=== PATIENT | female | born 1990 | race Caucasian/White ===

== ENCOUNTER 2018-04-03 16:16 | Emergency (ER) | payer OTHER, MEDICAID, SELFPAY ==
--- NOTE | 2018-04-03 16:19 | ED.ABDPAIN ---
HPI - Abdominal Pain <ESTEFANY Ortiz - Last Filed: 04/03/18 22:11> General Chief Complaint: Abdominal Pain Stated Complaint: ABD PAIN BLOOD STOOL THOWING UP Time Seen by Provider: 04/03/18 16:19 History of Present Illness HPI narrative: 27-year-old female here for complaint of nausea vomiting and generalized abdominal pain with diarrhea over the past 3 days. She states that she has also had blood in her stool over the past couple of days as well. No fevers. Possible chills. She denies any urinary symptoms. She denies any recent travel. No recent antibiotic use. She denies any outdoor activities. She denies eating any food that she thought was pulled. No known contacts with same symptoms. Positive p.o. intake although she had nausea vomiting shortly after eating. Her pain is mostly to her right lower quadrant area MD complaint: abdominal pain and other Related Data Previous Rx's Medication Instructions Recorded ondansetron 4 mg PO TID PRN #10 tab 04/03/18 Allergies Allergy/AdvReac Type Severity Reaction Status Date / Time Penicillins Allergy Severe ALMOST Verified 04/03/18 17:02 venom-honey bee Allergy Severe ANAPHYLAXIS Verified 04/03/18 17:02 [bee venom (honey bee)] Review of Systems <ESTEFANY Ortiz - Last Filed: 04/03/18 22:11> Constitutional Reports chills, Denies fever(s), Denies lethargy and Denies weakness Eyes Denies change in vision, Denies eye discharge, Denies irritation and Denies loss of vision ENT Ears, Nose, Mouth, and Throat: Denies change in voice, Denies neck pain and Denies sore throat Cardiovascular Denies chest pain, Denies irregular heart rhythm, Denies lightheadedness, Denies palpitations, Denies dyspnea, Denies dyspnea on exertion and Denies orthopnea Respiratory Denies cough, Denies dyspnea, Denies dyspnea on exertion and Denies wheezing Gastrointestinal Gastrointestinal: Reports abdominal pain, Reports hematochezia, Reports diarrhea, Reports nausea and Reports vomiting Genitourinary Denies hematuria, Denies flank pain, Denies urinary incontinence and Denies urinary urgency Musculoskeletal Denies neck pain Integumentary/Breasts Denies pruritus, Denies erythema, Denies rash and Denies wounds Neurologic Denies confusion, Denies loss of vision and Denies weakness Psychiatric Denies anxiety, Denies confusion, Denies depression, Denies homicidal ideation and Denies suicidal ideation Endocrine Denies palpitations Hematologic/Lymphatic Denies easy bruising Allergic/Immunologic Denies wheezing Exam <ESTEFANY Ortiz - Last Filed: 04/03/18 22:11> Initial Vital Signs Initial Vital Signs: Vital Signs Temperature 98.0 F 04/03/18 16:39 Pulse Rate 64 04/03/18 16:39 Respiratory Rate 16 04/03/18 16:39 Blood Pressure 124/85 H 04/03/18 16:39 Pulse Oximetry 100 04/03/18 16:39 Const General: cooperative and well developed Nutritional Appearance: well nourished Orientation: alert, awake, oriented x3 and not confused HENMT Nose: external nose normal and nasal discharge Mouth: oral mucosae normal and moist mucous membranes Eyes Conjunctivae: conjunctivae normal Sclera: sclerae normal Pupils: PERRL EOM: EOM intact bilaterally Resp Effort & Inspection: normal respiratory effort, able to speak in complete sentences, no respiratory distress and no use of accessory muscles Auscultation: clear to auscultation bilaterally, no rales, no rhonchi and no wheezes Cardio Rate: regular rate Rhythm: regular rhythm Heart Sounds: no click, no gallops, no murmurs and no rubs Pulses: normal peripheral pulses GI Inspection: non-distended Palpation: soft, no hepatosplenomegaly, No guarding, No pulsatile mass and tender (Tenderness to right lower quadrant) Auscultation: normal bowel sounds Rectal Exam: visual inspection normal, normal sphincter tone and heme positive stool Skin General: no rashes or lesions noted, No jaundice and No petechiae Neuro General: alert, oriented x3, gait normal and no focal motor deficits Speech: speech normal <Cassy Pulido DO - Last Filed: 04/04/18 08:52> Initial Vital Signs Initial Vital Signs: Vital Signs Temperature 98.0 F 04/03/18 16:39 Pulse Rate 64 04/03/18 16:39 Respiratory Rate 16 04/03/18 16:39 Blood Pressure 124/85 H 04/03/18 16:39 Pulse Oximetry 100 04/03/18 16:39 Course <ESTEFANY Ortiz - Last Filed: 04/03/18 22:11> Orders Ordered: Discontinued Medications Diphenhydramine HCl (Benadryl) 25 mg IV NOW ONE Stop: 04/03/18 17:25 Last Admin: 04/03/18 17:29 Dose: 25 mg Sodium Chloride (Normal Saline 0.9%) 1,000 mls @ 150 mls/hr IV CONT FIDELINA Last Infusion: 04/03/18 21:17 Dose: 0 mls/hr Admin: 04/03/18 17:08 Dose: 150 mls/hr Metoclopramide HCl (Reglan) 10 mg IV NOW ONE Stop: 04/03/18 17:25 Last Admin: 04/03/18 17:29 Dose: 10 mg Ondansetron HCl (Zofran) 4 mg IV NOW ONE Stop: 04/03/18 17:06 Last Admin: 04/03/18 17:08 Dose: 4 mg Ondansetron HCl (Zofran Odt Prepack) 1 bottle MISC SEEINSTR ONE Stop: 04/03/18 21:00 Last Admin: 04/03/18 21:11 Dose: 1 bottle Vital Signs - 8 hr 04/03/18 16:39 04/03/18 18:01 04/03/18 19:02 Temperature 98.0 F Pulse Rate 64 47 L 52 L Respiratory Rate 16 18 17 Blood Pressure 124/85 H Blood Pressure [Right Arm] 151/82 H 146/84 H Pulse Oximetry 100 47 L 100 04/03/18 19:30 04/03/18 20:30 04/03/18 21:19 Temperature 98.7 F Pulse Rate 47 L 50 L 58 L Respiratory Rate 17 17 16 Blood Pressure 130/79 H Blood Pressure [Right Arm] 134/79 H 136/80 H Pulse Oximetry 98 <Cassy Pulido DO - Last Filed: 04/04/18 08:52> Orders Ordered: Discontinued Medications Diphenhydramine HCl (Benadryl) 25 mg IV NOW ONE Stop: 04/03/18 17:25 Last Admin: 04/03/18 17:29 Dose: 25 mg Sodium Chloride (Normal Saline 0.9%) 1,000 mls @ 150 mls/hr IV CONT FIDELINA Last Infusion: 04/03/18 21:17 Dose: 0 mls/hr Admin: 04/03/18 17:08 Dose: 150 mls/hr Metoclopramide HCl (Reglan) 10 mg IV NOW ONE Stop: 04/03/18 17:25 Last Admin: 04/03/18 17:29 Dose: 10 mg Ondansetron HCl (Zofran) 4 mg IV NOW ONE Stop: 04/03/18 17:06 Last Admin: 04/03/18 17:08 Dose: 4 mg Ondansetron HCl (Zofran Odt Prepack) 1 bottle MISC SEEINSTR ONE Stop: 04/03/18 21:00 Last Admin: 04/03/18 21:11 Dose: 1 bottle Vital Signs - 8 hr 04/03/18 16:39 04/03/18 18:01 04/03/18 19:02 Temperature 98.0 F Pulse Rate 64 47 L 52 L Respiratory Rate 16 18 17 Blood Pressure 124/85 H Blood Pressure [Right Arm] 151/82 H 146/84 H Pulse Oximetry 100 47 L 100 04/03/18 19:30 04/03/18 20:30 04/03/18 21:19 Temperature 98.7 F Pulse Rate 47 L 50 L 58 L Respiratory Rate 17 17 16 Blood Pressure 130/79 H Blood Pressure [Right Arm] 134/79 H 136/80 H Pulse Oximetry 98 MDM - Abdominal Pain <ESTEFANY Ortiz - Last Filed: 04/03/18 22:11> Lab Data Result diagrams: 04/03/18 16:45 04/03/18 16:45 Lab Results 04/03/18 04/03/18 04/03/18 Range/Units 16:45 16:45 16:45 WBC 10.6 (4.5-11.0) X10^3/uL RBC 5.62 H (4.0-5.2) X10^6/uL Hgb 16.3 H (12.0-16.0) g/dL Hct 48.7 H (36-46) % MCV 86.7 (80-100) fL MCH 29.0 (26-34) PG MCHC 33.4 (30-36) % RDW 14.0 (11.6-14.8) % Plt Count 314 (150-400) X10^3/uL Neut % (Auto) 68.7 (50-75) % Lymph % (Auto) 24.4 L (25-40) % [place] % (Auto) 4.7 (3-14) % Eos % (Auto) 2.0 (2-4) % Baso % (Auto) 0.2 (0-2) % Neut # (Auto) 7300 H (9413-2416) /uL PT 11.1 (10.1-12.7) SECONDS INR 1.0 (0.9-1.3) APTT 30 (26.4-36.2) SECONDS Sodium 144 (137-145) mmol/L Potassium 3.6 (3.4-5.1) mmol/L Chloride 102 (98-107) mmol/L Carbon Dioxide 30 (22-32) mmol/L BUN 7 (7-17) mg/dL Creatinine 0.70 (0.52-1.04) mg/dL Estimated GFR > 60.0 (>60) mL/min BUN/Creatinine Ratio 10.0 (6-22) Glucose 104 H (70-100) mg/dL Calcium 9.6 (8.4-10.2) mg/dL Total Bilirubin 0.7 (0.2-1.3) mg/dL AST 18 (14-36) IU/L ALT 22 (9-52) IU/L Alkaline Phosphatase 50 (38-126) U/L Total Protein 7.5 (6.3-8.2) g/dL Albumin 4.3 (3.5-5.0) g/dL Globulin 3.2 (1.7-4.1) g/dL Albumin/Globulin Ratio 1.3 (1.0-2.8) Lipase 36 (23-300) U/L Urine RBC (0-5/HPF) Urine WBC (0-5/HPF) Ur Squamous Epith Cells Amorphous Sediment Urine Bacteria (None) Ur Culture Indicated? Micro UA Comment Stool Aeromonas Cult (Not Detect) Stl C. cayetanensis PCR (Not Detect) Stool Rotavirus (PCR) (Not Detect) Stool Adenovirus (PCR) (Not Detect) Stool Astrovirus (PCR) (Not Detect) Stool Cryptosporidium PCR (Not Detect) Stl E.coli Shiga Tox PCR (Not Detect) St Sh/Enteroin Ecoli PCR (Not Detect) Stool E coli O157 PCR Stl Enterotoxigenic E PCR (Not Detect) Stool EPEC (PCR) (Not Detect) Stl E. histolytica PCR (Not Detect) Stool Giardia Lamblia PCR (Not Detect) Stool Sapovirus (PCR) Stl P. shigelloides PCR (Not Detect) St Y.enterocolitica PCR (Not Detect) Stool Vibrio (PCR) (Not Detect) Stl Vibrio cholerae PCR (Not Detect) Stl Enteroaggr Ecoli PCR (Not Detect) Stl Norovirus GI/GII PCR (Not Detect) Campylobacter (PCR) (Not Detect) C. difficile Tox (PCR) (Not Detect) Salmonella (PCR) (Not Detect) 04/03/18 04/03/18 Range/Units 17:42 18:50 WBC (4.5-11.0) X10^3/uL RBC (4.0-5.2) X10^6/uL Hgb (12.0-16.0) g/dL Hct (36-46) % MCV (80-100) fL MCH (26-34) PG MCHC (30-36) % RDW (11.6-14.8) % Plt Count (150-400) X10^3/uL Neut % (Auto) (50-75) % Lymph % (Auto) (25-40) % [place] % (Auto) (3-14) % Eos % (Auto) (2-4) % Baso % (Auto) (0-2) % Neut # (Auto) (1695-2979) /uL PT (10.1-12.7) SECONDS INR (0.9-1.3) APTT (26.4-36.2) SECONDS Sodium (137-145) mmol/L Potassium (3.4-5.1) mmol/L Chloride (98-107) mmol/L Carbon Dioxide (22-32) mmol/L BUN (7-17) mg/dL Creatinine (0.52-1.04) mg/dL Estimated GFR (>60) mL/min BUN/Creatinine Ratio (6-22) Glucose (70-100) mg/dL Calcium (8.4-10.2) mg/dL Total Bilirubin (0.2-1.3) mg/dL AST (14-36) IU/L ALT (9-52) IU/L Alkaline Phosphatase (38-126) U/L Total Protein (6.3-8.2) g/dL Albumin (3.5-5.0) g/dL Globulin (1.7-4.1) g/dL Albumin/Globulin Ratio (1.0-2.8) Lipase (23-300) U/L Urine RBC 5-10/hpf H (0-5/HPF) Urine WBC 1-5/hpf (0-5/HPF) Ur Squamous Epith Cells 0-1 /hpf Amorphous Sediment 3+ Urine Bacteria None seen (None) Ur Culture Indicated? Not Reportable Micro UA Comment Not Reportable Stool Aeromonas Cult Awaiting culture res (Not Detect) Stl C. cayetanensis PCR Not detected (Not Detect) Stool Rotavirus (PCR) Not detected (Not Detect) Stool Adenovirus (PCR) Not detected (Not Detect) Stool Astrovirus (PCR) Not detected (Not Detect) Stool Cryptosporidium PCR Not detected (Not Detect) Stl E.coli Shiga Tox PCR Detected H (Not Detect) St Sh/Enteroin Ecoli PCR Not detected (Not Detect) Stool E coli O157 PCR Not Reportable Stl Enterotoxigenic E PCR Not detected (Not Detect) Stool EPEC (PCR) Not detected (Not Detect) Stl E. histolytica PCR Not detected (Not Detect) Stool Giardia Lamblia PCR Not detected (Not Detect) Stool Sapovirus (PCR) Not detected Stl P. shigelloides PCR Not detected (Not Detect) St Y.enterocolitica PCR Not detected (Not Detect) Stool Vibrio (PCR) Not detected (Not Detect) Stl Vibrio cholerae PCR Not detected (Not Detect) Stl Enteroaggr Ecoli PCR Not detected (Not Detect) Stl Norovirus GI/GII PCR Not detected (Not Detect) Campylobacter (PCR) Not detected (Not Detect) C. difficile Tox (PCR) Not detected (Not Detect) Salmonella (PCR) Not detected (Not Detect) Point of care testing: Point of Care Testing Test Results Negative Urine Dip Bedside Urine Glucose Negative Bedside Urine Bilirubin - Negative Bedside Urine Ketone - Negative Urine Specific [place] 1.015 Bedside Urine Occult Blood ++ Bedside Urine pH 8.5 Bedside Urine Protein - Negative Bedside Urine Urobilinogen - Negative Bedside Urine Nitrite - Negative Bedside Urine Leukocytes - Negative Esterase Imaging Data CT scan - abdomen: Radiologist's impression: PROCEDURE: CT ABDOMEN PELVIS W CON INDICATIONS: Right upper and lower quadrant pain last couple days. History of appendectomy. TECHNIQUE: After the administration of oral and intravenous contrast, 5 mm thick sections acquired from the diaphragms to the symphysis. 5 mm thick coronal and sagittal reformats were performed. For radiation dose reduction, the following was used: automated exposure control, adjustment of mA and/or kV according to patient size. COMPARISON: None. FINDINGS: Image quality: Excellent. ABDOMEN: Lung bases: Lung bases are clear. Heart size is normal. Solid organs: There are 4 small hyperdense foci within the right and left hepatic lobes likely representing flash filling hemangiomas. The gallbladder appears within normal limits without calcified gallstones. Biliary system is non-dilated. Pancreas enhances normally. Spleen is normal in size and enhancement. No adrenal nodules. Kidneys are normal in size and enhancement, without hydronephrosis. Peritoneum and bowel: Stomach small bowel loops are normal in caliber and wall thickness. There is marked segmental wall thickening of the ascending colon as well as mild thickening involving the remainder of the colon. There is associated pericolonic fat stranding with a small amount of free fluid in the right paracolic gutter and the pelvis. No free air. Nodes and vessels: No retroperitoneal or mesenteric adenopathy. Aorta and inferior vena cava are normal in caliber. Miscellaneous: No ventral hernias. PELVIS: Genitourinary: There is mild concentric bladder wall thickening. Miscellaneous: No inguinal hernias or adenopathy. Bones: No suspicious bony lesions. No vertebral body compression fractures. IMPRESSION: 1. Diffuse infectious or inflammatory colitis including marked wall thickening of the ascending colon. 2. 4 hyperdense foci in the liver are nonspecific but given patient's age likely represent flash filling hemangiomas. Dictated by: Raheel Murillo M.D. on 04/03/2018 at 18:11 Approved by: Raheel Murillo M.D. on 04/03/2018 at 18:[address] [facility] Narrative Medical decision making narrative: CBC and Chem panel were obtained were unremarkable. Urinalysis was negative for and urinary tract infection. CT of the abdomen and shows diffuse inflammation into the colon with thickening of the wall. PCR stool studies was obtained and shows E coli shiga toxins. She is prescribed Zofran to help with the nausea. Plenty of fluids. Slowly advance diet as tolerated. follow up with primary care provider in the next few days. [id number] Tylenol as needed for any discomfort. For any worsening symptoms return to the emergency room. <Cassy Pulido, DO - Last Filed: 04/04/18 08:52> Lab Data Lab Results 04/03/18 04/03/18 04/03/18 Range/Units 16:45 16:45 16:45 WBC 10.6 (4.5-11.0) X10^3/uL RBC 5.62 H (4.0-5.2) X10^6/uL Hgb 16.3 H (12.0-16.0) g/dL Hct 48.7 H (36-46) % MCV 86.7 (80-100) fL MCH 29.0 (26-34) PG MCHC 33.4 (30-36) % RDW 14.0 (11.6-14.8) % Plt Count 314 (150-400) X10^3/uL Neut % (Auto) 68.7 (50-75) % Lymph % (Auto) 24.4 L (25-40) % [place] % (Auto) 4.7 (3-14) % Eos % (Auto) 2.0 (2-4) % Baso % (Auto) 0.2 (0-2) % Neut # (Auto) 7300 H (7096-3920) /uL PT 11.1 (10.1-12.7) SECONDS INR 1.0 (0.9-1.3) APTT 30 (26.4-36.2) SECONDS Sodium 144 (137-145) mmol/L Potassium 3.6 (3.4-5.1) mmol/L Chloride 102 (98-107) mmol/L Carbon Dioxide 30 (22-32) mmol/L BUN 7 (7-17) mg/dL Creatinine 0.70 (0.52-1.04) mg/dL Estimated GFR > 60.0 (>60) mL/min BUN/Creatinine Ratio 10.0 (6-22) Glucose 104 H (70-100) mg/dL Calcium 9.6 (8.4-10.2) mg/dL Total Bilirubin 0.7 (0.2-1.3) mg/dL AST 18 (14-36) IU/L ALT 22 (9-52) IU/L Alkaline Phosphatase 50 (38-126) U/L Total Protein 7.5 (6.3-8.2) g/dL Albumin 4.3 (3.5-5.0) g/dL Globulin 3.2 (1.7-4.1) g/dL Albumin/Globulin Ratio 1.3 (1.0-2.8) Lipase 36 (23-300) U/L Urine RBC (0-5/HPF) Urine WBC (0-5/HPF) Ur Squamous Epith Cells Amorphous Sediment Urine Bacteria (None) Ur Culture Indicated? Micro UA Comment Stool Aeromonas Cult (Not Detect) Stl C. cayetanensis PCR (Not Detect) Stool Rotavirus (PCR) (Not Detect) Stool Adenovirus (PCR) (Not Detect) Stool Astrovirus (PCR) (Not Detect) Stool Cryptosporidium PCR (Not Detect) Stl E.coli Shiga Tox PCR (Not Detect) St Sh/Enteroin Ecoli PCR (Not Detect) Stool E coli O157 PCR Stl Enterotoxigenic E PCR (Not Detect) Stool EPEC (PCR) (Not Detect) Stl E. histolytica PCR (Not Detect) Stool Giardia Lamblia PCR (Not Detect) Stool Sapovirus (PCR) Stl P. shigelloides PCR (Not Detect) St Y.enterocolitica PCR (Not Detect) Stool Vibrio (PCR) (Not Detect) Stl Vibrio cholerae PCR (Not Detect) Stl Enteroaggr Ecoli PCR (Not Detect) Stl Norovirus GI/GII PCR (Not Detect) Campylobacter (PCR) (Not Detect) C. difficile Tox (PCR) (Not Detect) Salmonella (PCR) (Not Detect) 04/03/18 04/03/18 Range/Units 17:42 18:50 WBC (4.5-11.0) X10^3/uL RBC (4.0-5.2) X10^6/uL Hgb (12.0-16.0) g/dL Hct (36-46) % MCV (80-100) fL MCH (26-34) PG MCHC (30-36) % RDW (11.6-14.8) % Plt Count (150-400) X10^3/uL Neut % (Auto) (50-75) % Lymph % (Auto) (25-40) % [place] % (Auto) (3-14) % Eos % (Auto) (2-4) % Baso % (Auto) (0-2) % Neut # (Auto) (2297-2673) /uL PT (10.1-12.7) SECONDS INR (0.9-1.3) APTT (26.4-36.2) SECONDS Sodium (137-145) mmol/L Potassium (3.4-5.1) mmol/L Chloride (98-107) mmol/L Carbon Dioxide (22-32) mmol/L BUN (7-17) mg/dL Creatinine (0.52-1.04) mg/dL Estimated GFR (>60) mL/min BUN/Creatinine Ratio (6-22) Glucose (70-100) mg/dL Calcium (8.4-10.2) mg/dL Total Bilirubin (0.2-1.3) mg/dL AST (14-36) IU/L ALT (9-52) IU/L Alkaline Phosphatase (38-126) U/L Total Protein (6.3-8.2) g/dL Albumin (3.5-5.0) g/dL Globulin (1.7-4.1) g/dL Albumin/Globulin Ratio (1.0-2.8) Lipase (23-300) U/L Urine RBC 5-10/hpf H (0-5/HPF) Urine WBC 1-5/hpf (0-5/HPF) Ur Squamous Epith Cells 0-1 /hpf Amorphous Sediment 3+ Urine Bacteria None seen (None) Ur Culture Indicated? Not Reportable Micro UA Comment Not Reportable Stool Aeromonas Cult Awaiting culture res (Not Detect) Stl C. cayetanensis PCR Not detected (Not Detect) Stool Rotavirus (PCR) Not detected (Not Detect) Stool Adenovirus (PCR) Not detected (Not Detect) Stool Astrovirus (PCR) Not detected (Not Detect) Stool Cryptosporidium PCR Not detected (Not Detect) Stl E.coli Shiga Tox PCR Detected H (Not Detect) St Sh/Enteroin Ecoli PCR Not detected (Not Detect) Stool E coli O157 PCR Not Reportable Stl Enterotoxigenic E PCR Not detected (Not Detect) Stool EPEC (PCR) Not detected (Not Detect) Stl E. histolytica PCR Not detected (Not Detect) Stool Giardia Lamblia PCR Not detected (Not Detect) Stool Sapovirus (PCR) Not detected Stl P. shigelloides PCR Not detected (Not Detect) St Y.enterocolitica PCR Not detected (Not Detect) Stool Vibrio (PCR) Not detected (Not Detect) Stl Vibrio cholerae PCR Not detected (Not Detect) Stl Enteroaggr Ecoli PCR Not detected (Not Detect) Stl Norovirus GI/GII PCR Not detected (Not Detect) Campylobacter (PCR) Not detected (Not Detect) C. difficile Tox (PCR) Not detected (Not Detect) Salmonella (PCR) Not detected (Not Detect) Point of care testing: Point of Care Testing Test Results Negative Urine Dip Bedside Urine Glucose Negative Bedside Urine Bilirubin - Negative Bedside Urine Ketone - Negative Urine Specific [place] 1.015 Bedside Urine Occult Blood ++ Bedside Urine pH 8.5 Bedside Urine Protein - Negative Bedside Urine Urobilinogen - Negative Bedside Urine Nitrite - Negative Bedside Urine Leukocytes - Negative Esterase Discharge Plan Departure Patient Disposition: Home, Self-Care Clinical Impression: E. coli gastroenteritis Discharge Date/Time: 04/03/18 21:19 Interventions: ED Discharge Assessment Last Done: 04/03/18 21:19 Instructions: DI for Escherichia Coli Infection Activity Restrictions/Additional Instructions: Laboratory results today were unremarkable. CT of the abdomen shows inflammation to the colon area. Stool study show positive for E coli toxins. Signs and symptoms presents as E coli gastroenteritis. Use [id number] Tylenol as needed for any discomfort. Zofran as prescribed for nausea. Slowly advance diet as tolerated. Plenty of fluids. Follow up with primary care provider in the next few days for re-evaluation. For any worsening symptoms return to the emergency room. Prescriptions: New ondansetron 4 mg tablet,disintegrating 4 mg PO TID PRN (Reason: nausea and vomiting) Qty: 10 RF: 0 Referrals: [facility] [Provider Group] Stand Alone Forms: Work/School Restrictions <Cassy Pulido DO - Last Filed: 04/04/18 08:52> Cosign ED Attending Mitchell Attestation: I was immediately available in the department for consultation. Documentation has been reviewed. I agree with assessment and plan.
[2018-04-03 16:39] VITALS: BP 124/85; PULSE 64; RESP 16; TEMP 36.7; O2SAT 100; BMI 23.3
--- NOTE | 2018-04-03 17:01 | DI.CT.S_ITS ---
PROCEDURE: CT ABDOMEN PELVIS W CON INDICATIONS: Right upper and lower quadrant pain last couple days. History of appendectomy. TECHNIQUE: After the administration of oral and intravenous contrast, 5 mm thick sections acquired from the diaphragms to the symphysis. 5 mm thick coronal and sagittal reformats were performed. For radiation dose reduction, the following was used: automated exposure control, adjustment of mA and/or kV according to patient size. COMPARISON: None. FINDINGS: Image quality: Excellent. ABDOMEN: Lung bases: Lung bases are clear. Heart size is normal. Solid organs: There are 4 small hyperdense foci within the right and left hepatic lobes likely representing flash filling hemangiomas. The gallbladder appears within normal limits without calcified gallstones. Biliary system is non-dilated. Pancreas enhances normally. Spleen is normal in size and enhancement. No adrenal nodules. Kidneys are normal in size and enhancement, without hydronephrosis. Peritoneum and bowel: Stomach small bowel loops are normal in caliber and wall thickness. There is marked segmental wall thickening of the ascending colon as well as mild thickening involving the remainder of the colon. There is associated pericolonic fat stranding with a small amount of free fluid in the right paracolic gutter and the pelvis. No free air. Nodes and vessels: No retroperitoneal or mesenteric adenopathy. Aorta and inferior vena cava are normal in caliber. Miscellaneous: No ventral hernias. PELVIS: Genitourinary: There is mild concentric bladder wall thickening. Miscellaneous: No inguinal hernias or adenopathy. Bones: No suspicious bony lesions. No vertebral body compression fractures. IMPRESSION: 1. Diffuse infectious or inflammatory colitis including marked wall thickening of the ascending colon. 2. 4 hyperdense foci in the liver are nonspecific but given patient's age likely represent flash filling hemangiomas. Dictated by: Raheel Murillo M.D. on 04/03/2018 at 18:11 Approved by: Raheel Murillo M.D. on 04/03/2018 at 18:15
[2018-04-03 17:08] LABS: Prothrombin Time 11.1 SECONDS (10.1-12.7)
[2018-04-03] MEDS: SODIUM CHLORIDE 0.9% 1,000 ML 150 ML IV (17:08)
[2018-04-03] MEDS: ONDANSETRON 4 MG/2 ML INJ IV (17:08)
[2018-04-03 17:10] LABS: PTT Partial Thromboplastin Tim 30 SECONDS (26.4-36.2)
[2018-04-03 17:12] LABS: Alanine Aminotransferase 22 IU/L (9-52); Albumin 4.3 g/dL (3.5-5.0); Albumin Globulin Ratio 1.3 (1.0-2.8); Alkaline Phosphatase 50 U/L (38-126); Aspartate Aminotransferase 18 IU/L (14-36); Bilirubin Total 0.7 mg/dL (0.2-1.3); Blood Urea Nitrogen 7 mg/dL (7-17); Calcium 9.6 mg/dL (8.4-10.2); Carbon Dioxide 30 mmol/L (22-32); Chloride 102 mmol/L (98-107); Estimated Glomerular Filt Rate > 60.0 mL/min (>60); Globulin 3.2 g/dL (1.7-4.1); Glucose 104 mg/dL (70-100); HEMOLYSIS < 15 (0-50); Lipase 36 U/L (23-300); Potassium 3.6 mmol/L (3.4-5.1); Sodium 144 mmol/L (137-145); Total Protein 7.5 g/dL (6.3-8.2)
[2018-04-03 17:21] LABS: Add Manual Diff / Slide Review NO; Basophils Percent Auto 0.2 % (0-2); Hematocrit 48.7 % (36-46); Hemoglobin 16.3 g/dL (12.0-16.0); Lymphocytes Percent Auto 24.4 % (25-40); Mean Corpuscular HGB Conc 33.4 % (30-36); Mean Corpuscular Volume 86.7 fL (80-100); Monocytes Percent Auto 4.7 % (3-14); Neutrophils Absolute Auto 7300 /uL (3000-5900); Neutrophils Percent Auto 68.7 % (50-75); Platelet Count 314 X10^3/uL (150-400); Red Blood Cell Count 5.62 X10^6/uL (4.0-5.2); White Blood Cell Count 10.6 X10^3/uL (4.5-11.0)
[2018-04-03] MEDS: diphenhydrAMINE 50 MG/ML VIAL 25 MG IV (17:29)
[2018-04-03] MEDS: METOCLOPRAMIDE 10 MG/2 ML INJ IV (17:29)
--- NOTE | 2018-04-03 17:32 | PC.NURSE ---
Patient reports [facility] at [facility] before coming to the ER.
[2018-04-03 17:44] LABS: Bacteria Urine None Seen
[2018-04-03 17:58] LABS: Amorphous Sediment Urine 3+; RBC Urine 5-10/HPF (0-5/HPF); Squamous Epithelial Cell Urine 0-1 /HPF; WBC Urine 1-5/HPF (0-5/HPF)
[2018-04-03 18:01] VITALS: BP 151/82; PULSE 47; RESP 18; O2SAT 47
--- NOTE | 2018-04-03 18:33 | PC.NURSE ---
Patient attempted to provide stool specimen without success. PELP aware.
--- NOTE | 2018-04-03 18:34 | PC.NURSE ---
Patient up to bathroom with steady gait. Provided urine specimen and stool specimen. She accidentally contaminated her stool specimen with water from the automatic sink.
--- NOTE | 2018-04-03 18:53 | PC.NURSE ---
Stool specimen provided by patient that is liquid and dark brown/red with obvious blood in it. [place]net continues to complain of epigastric and intestinal pain.
[2018-04-03 19:02] VITALS: BP 146/84; PULSE 52; RESP 17; O2SAT 100
[2018-04-03 19:30] VITALS: BP 134/79; PULSE 47; RESP 17
[2018-04-03 20:30] VITALS: BP 136/80; PULSE 50; RESP 17
[2018-04-03 20:41] LABS: Campylobacter Not Detected (Not Detect); Clostridium difficile toxin AB Not Detected (Not Detect); Enteroaggregative E.coli Not Detected (Not Detect); Enterotoxigenic E.coli It/st Not Detected (Not Detect); Plesiomonsa shigelloides Not Detected (Not Detect); Salmonella Not Detected (Not Detect); Vibrio Not Detected (Not Detect); Vibrio cholerae Not Detected (Not Detect); Yersinia enterocolitica Not Detected (Not Detect)
[2018-04-03 20:42] LABS: Adenovirus F 40/41 Not Detected (Not Detect); Astrovirus Not Detected (Not Detect); Cryptosporidium Not Detected (Not Detect); Cyclospora cayetanensis Not Detected (Not Detect); Entamoeba histolytica Not Detected (Not Detect); Giardia lamblia Not Detected (Not Detect); Norovirus GI/GII Not Detected (Not Detect); Rotavirus A Not Detected (Not Detect); Shigella/Enteroinvasive E.coli Not Detected (Not Detect)
[2018-04-03] MEDS: ONDANSETRON 4 MG ODT PREPACK 1 BOTTLE MISC (21:11)
[2018-04-03 21:19] VITALS: BP 130/79; PULSE 58; RESP 16; TEMP 37.1; O2SAT 98
[2018-04-04 06:48] LABS: Sapovirus Not Detected
[2018-04-04 14:35] LABS: Shiga-like toxin-prod E.coli Detected (Not Detect)
== END 2018-04-03 21:19 | disposition home or self-care (01) ==
PROVIDERS: Emergency Provider Nurse Practitioner Family
DX: A04.4 Other intestinal Escherichia coli infections (principal)
CPT/HCPCS: 36591; 74177; 80053; 81003; 81015; 81025; 83690; 85025; 85610; 85730; 87015; 87045; 87427; 87507; 87899; 96361; 96374; 96375; 99284; 99285; J1200; J2405; J2765; Q9967

== ENCOUNTER → 2018-09-09 12:54 | Outpatient (CLI) | payer OTHER, MEDICAID, SELFPAY ==
--- NOTE | 2018-09-09 | DI.US.S_ITS ---
PROCEDURE: US PELVIC COMPLETE INDICATIONS: CYST OF RIGHT OVARY TECHNIQUE: Real-time scanning was performed of the pelvic organs, with image documentation. Additional endovaginal scanning was necessary due to incomplete visualization of the adnexal and endometrial structures by transabdominal scanning. COMPARISON: [facility], , PELVIC COMPLETE, 05/17/2008, 20:46. FINDINGS: Transabdominal scanning: Limited scanning through the kidneys shows no hydronephrosis. Physiologic amount of free fluid is noted in lower pelvis. No pathologic free abdominal or pelvic fluid. Endovaginal scanning: Uterus: Uterus is normal in size at 7.5 x 3.3 x 4.9 cm. The endometrium measures 4 mm in combined thickness. No endometrial mass or fluid is seen. Ovaries: Right ovary measures 2.5 x 2.3 x 2.1 cm in size. Left ovary measures 3 x 2.3 x 2.2 cm in size. Small subcentimeter follicles are noted in bilateral ovaries. There is no gross solid appearing brain lesion. Normal blood flow seen in bilateral presacral Doppler images. IMPRESSION: Unremarkable ultrasound examination of the pelvis. Dictated by: Jorge Cook M.D. on 09/09/2018 at 15:56 Approved by: Jorge Cook M.D. on 09/09/2018 at 15:59
== END ==
PROVIDERS: Visit Provider Family Medicine
DX: N83.201 Unspecified ovarian cyst, right side (principal)
CPT/HCPCS: 76830; 76856

== ENCOUNTER 2023-01-05 02:24 | Emergency (ER) | payer SELFPAY ==
[2023-01-05 02:32] VITALS: BP 136/84; PULSE 100; RESP 16; TEMP 36.8; O2SAT 100; BMI 27.3
--- NOTE | 2023-01-05 03:11 | ED.LOWEXIN ---
HPI - Extremity Injury (Lower) General Chief Complaint: Extremity Injury, Lower Stated Complaint: right foot swollen Time Seen by Provider: 01/05/23 03:01 Source: patient Mode of arrival: Ambulatory Limitations: no limitations History of Present Illness HPI Narrative: Patient is a 32-year-old female who is here for evaluation of redness and swelling to her right foot. It has been swollen for the past couple days. She does not know of a specific incident that she hurt it however she did state that she was intoxicated the night prior to it happening. She did have a small blister on the top of her foot. She has no ankle pain. She is able to walk. She states it feels like her toes are swollen. She denies any fever. She states the pain is starting to come up her calf. Related Data Previous Rx's Medication Instructions Recorded ondansetron 4 mg disintegrating 4 mg PO TID PRN nausea and 04/03/18 tablet vomiting #10 tabs doxycycline hyclate 100 mg tablet 100 mg PO BID 7 days #14 tabs 01/05/23 Allergies Allergy/AdvReac Type Severity Reaction Status Date / Time Penicillins Allergy Severe ALMOST Verified 04/03/18 17:02 venom-honey bee Allergy Severe ANAPHYLAXIS Verified 04/03/18 17:02 [bee venom (honey bee)] Review of Systems Constitutional Constitutional: Reports system reviewed and no additional complaints, except as documented Musculoskeletal Musculoskeletal: Reports system reviewed and no additional complaints, except as documented Integumentary/Breasts Skin/Breast: Reports system reviewed and no additional complaints, except as documented Neurologic Neurologic: Reports system reviewed and no additional complaints, except as documented Hematologic/Lymphatic On Anticoagulants: No Patient History Social History Smoking Status: Current every day smoker Smoking Status: Current every day smoker alcohol intake frequency: a few times a month Substance Use Type: marijuana Exam Initial Vital Signs Initial Vital Signs: Vital Signs Temperature 98.3 F 01/05/23 02:32 Pulse Rate 100 H 01/05/23 02:32 Respiratory Rate 16 01/05/23 02:32 Blood Pressure 136/84 01/05/23 02:32 Pulse Oximetry 100 01/05/23 02:32 Oxygen Delivery Method Room Air 01/05/23 02:32 Cardio Pulses: dorsalis pedis present Skin Other: Redness on the dorsum of the foot to include the toes. Does extend to the hindfoot on the lateral aspect. Extrem Other: Swelling of the mid foot and forefoot on the right. Course Orders Ordered: Discontinued Medications Doxycycline Hyclate (Doxycycline Hyclate 100 Mg Tablet) 100 mg PO NOW ONE Stop: 01/05/23 03:12 Vital Signs Vital signs: Vital Signs - 8 hr 01/05/23 02:32 Temperature 98.3 F Pulse Rate 100 H Respiratory Rate 16 Blood Pressure 136/84 Pulse Oximetry 100 Oxygen Delivery Method Room Air MDM - Extremity Injury (Lower) MDM Narrative Medical decision making narrative: Patient's history physical exam is consistent with cellulitis. I have low suspicion for fracture she is able to move her toes and also able to walk and flex and extend her ankle without difficulty. Low suspicion for an abscess. Patient is nontoxic appearing. Will discharge patient home with antibiotics. She was given 1st dose in the emergency department and a prescription was sent to the pharmacy of her choice. She was given return precautions Patient expressed understanding and agreement. Discharge Plan Departure Patient Disposition: Home Clinical Impression: Cellulitis Instructions: DI for Cellulitis -- Adult Activity Restrictions/Additional Instructions: Your exam today is consistent with a skin infection of your foot. Because of this we do need to put you on antibiotics. You were given the 1st dose here in the ER and a prescription was sent to [facility]. Please start taking it as directed. Return to the emergency department for worsening symptoms. Prescriptions: New doxycycline hyclate 100 mg tablet 100 mg PO BID 7 Days Qty: 14 0RF No Action ondansetron 4 mg tablet,disintegrating 4 mg PO TID PRN (Reason: nausea and vomiting) Qty: 10 0RF Stand Alone Forms: Patient Portal/API
[2023-01-05] MEDS: DOXYCYCLINE HYCLATE 100 MG TABLET PO (03:21)
== END 2023-01-05 03:25 | disposition home or self-care (01) ==
PROVIDERS: Emergency Provider Emergency Medicine
DX: L03.115 Cellulitis of right lower limb (principal)
CPT/HCPCS: 99283

== ENCOUNTER 2024-11-23 16:46 | Emergency (ER) | payer OTHER, SELFPAY ==
[2024-11-23 16:58] VITALS: BP 124/68; PULSE 103; RESP 20; TEMP 36.6; O2SAT 98; BMI 27.3
== END 2024-11-23 19:25 | disposition left against medical advice (07) ==
PROVIDERS: Emergency Provider Emergency Medicine
DX: M79.89 Other specified soft tissue disorders (principal)
CPT/HCPCS: 99281